=== PATIENT | male | born 1970 | race Caucasian/White ===

== ENCOUNTER 2019-10-08 11:18 | Inpatient (IN) ==
[2019-10-08] MEDS ORDERED: *HR* FentaNYL (PF) 100 MCG/2 ML VIAL IVP ONE ×2 (11:57→15:09)
[2019-10-08 13:14] LABS: Basophils % 0.1 %; Hematocrit 28.4 % (37.5-50.1); Hemoglobin 9.4 g/dL (12.9-16.9); Immature Granulocytes % 3.6 % (0-4); Lymphocytes # 0.3 K/mcL (0.6-4.6); Lymphocytes % 3.9 %; Mean Corpuscular HGB Conc 33.1 g/dL (31.6-35.5); Mean Corpuscular Hemoglobin 40.2 pg (28.0-33.3); Mean Corpuscular Volume 121.4 fL (83.0-100.0); Mean Platelet Volume 9.4 fL (9.4-12.4); Monocytes # 0.9 K/mcL (0.0-1.3); Platelet Count 189 K/mcL (140-400); Prothrombin Time 11.8 Seconds (9.4-12.1); Red Blood Count 2.34 M/mcL (4.19-5.50); Red Cell Distribution Width 17.4 % (11.5-14.5); Segmented Neutrophils % 80.4 %; White Blood Count 7.4 K/mcL (4.3-11.1)
[2019-10-08 13:31] LABS: BUN/Creatinine Ratio 26 (6-26); Blood Urea Nitrogen 17 mg/dL (6-20); Calcium 9.6 mg/dL (8.6-10.3); Carbon Dioxide 28 mEq/L (23-29); Chloride 101 mEq/L (98-107); Glucose 117 mg/dL (70-105); Osmolality,Calculated 285 (280-300); Potassium 4.3 mEq/L (3.5-5.1); Sodium 136 mEq/L (136-145); eGFR For African Americans > 60 (> 60); eGFR For Non-African Americans > 60 (> 60)
[2019-10-08 13:42] LABS: Anisocytosis 1+ (Not Present); Macrocytosis Present (Not Present); Platelet Estimate Normal (Normal)
[2019-10-08] MEDS ORDERED: Ondansetron ODT 4 MG TAB.RAPDIS PO PRN (16:07)
[2019-10-08] MEDS ORDERED: NON-FORMULARY MEDICATION 1 EACH EACH (Oxycodone Immed Rel 10 MG) PO PRN (16:07)
[2019-10-08] MEDS ORDERED: Naloxone 0.4 MG/ML INJ IVP PRN (16:12)
[2019-10-08] MEDS ORDERED: BUPRENORPHINE 20 MCG TP SCH (16:15)
[2019-10-08] MEDS ORDERED: *HR* HYDROmorphone (PF) 1 MG/ML SYRINGE IVP PRN (16:16)
[2019-10-08] MEDS ORDERED: OLANZapine 10 MG TAB.RAPDIS PO SCH (21:00)
[2019-10-08] MEDS: Gabapentin 400 MG CAPSULE PO SCH (22:21)
[2019-10-08] MEDS: Albuterol 2.5 MG/3 ML NEBULIZER IH SCH (23:04)
[2019-10-08] MEDS: Zinc Sulfate 220 MG CAPSULE PO SCH (23:44)
[2019-10-09] MEDS: Albuterol 2.5 MG/3 ML NEBULIZER IH SCH ×4 (03:41→22:05)
[2019-10-09 05:26] LABS: Eosinophils # 0.1 K/mcL (0.0-0.6); Eosinophils % 2.2 %; Hematocrit 27.2 % (37.5-50.1); Immature Granulocytes % 1.5 % (0-4); Lymphocytes # 0.6 K/mcL (0.6-4.6); Lymphocytes % 10.6 %; Mean Corpuscular HGB Conc 33.1 g/dL (31.6-35.5); Mean Corpuscular Hemoglobin 40.5 pg (28.0-33.3); Mean Corpuscular Volume 122.5 fL (83.0-100.0); Mean Platelet Volume 9.4 fL (9.4-12.4); Monocytes # 0.8 K/mcL (0.0-1.3); Monocytes % 14.5 %; Neutrophils # 3.8 K/mcL (1.6-8.9); Platelet Count 163 K/mcL (140-400); Red Blood Count 2.22 M/mcL (4.19-5.50); Red Cell Distribution Width 17.6 % (11.5-14.5); Segmented Neutrophils % 71.2 %; White Blood Count 5.4 K/mcL (4.3-11.1)
[2019-10-09 05:48] LABS: BUN/Creatinine Ratio 22 (6-26); Blood Urea Nitrogen 12 mg/dL (6-20); Calcium 8.9 mg/dL (8.6-10.3); Carbon Dioxide 26 mEq/L (23-29); Chloride 103 mEq/L (98-107); Glucose 105 mg/dL (70-105); Osmolality,Calculated 284 (280-300); Potassium 3.7 mEq/L (3.5-5.1); Sodium 137 mEq/L (136-145); eGFR For African Americans > 60 (> 60); eGFR For Non-African Americans > 60 (> 60)
[2019-10-09] MEDS ORDERED: *HR* Enoxaparin 40 MG/0.4 ML SYRINGE SQ SCH (06:00)
[2019-10-09 06:24] LABS: Anisocytosis 1+ (Not Present); Microcytosis Present (Not Present)
[2019-10-09 06:25] LABS: Platelet Estimate Normal (Normal)
[2019-10-09] MEDS: Gabapentin 400 MG CAPSULE PO SCH ×3 (07:30→21:53)
[2019-10-09] MEDS: Zinc Sulfate 220 MG CAPSULE PO SCH ×2 (07:30→21:52)
[2019-10-09] MEDS ORDERED: Lidocaine HCL 4 ML Topical Solution (Laryng-O-Jet Kit Sterile Pak) TP ONE (08:32)
[2019-10-09] MEDS ORDERED: *HR* FentaNYL (PF) 100 MCG/2 ML VIAL ONE (08:32)
[2019-10-09] MEDS ORDERED: Lidocaine -MPF 2% 2 ML VIAL ONE (08:32)
[2019-10-09] MEDS ORDERED: *HR* Propofol 200 MG/20 ML VIAL IVP ONE (08:32)
[2019-10-09] MEDS ORDERED: Ondansetron 4 MG/2 ML VIAL ONE (08:32)
[2019-10-09] MEDS ORDERED: Dexamethasone 4 MG/ML VIAL ONE (08:32)
[2019-10-09] MEDS ORDERED: *HR* HYDROmorphone PF 0.5 MG/0.5 ML SYRINGE IVP PRN ×3 (08:38→13:05)
[2019-10-09] MEDS ORDERED: *HR* OxyCODONE Immed Rel 5 MG TABLET PO PRN (08:38)
[2019-10-09] MEDS ORDERED: Ondansetron 4 MG/2 ML VIAL IVP ONE ×2 (08:38→13:05)
[2019-10-09] MEDS ORDERED: *HR* Promethazine 25 MG/ML VIAL IVP PRN ×2 (08:38→13:05)
[2019-10-09] MEDS ORDERED: Ringers Solution, Lactated 1,000 ML IVC SCH ×2 (08:45→13:05)
[2019-10-09] MEDS ORDERED: Sulfamethoxazole/Trimeth DS 1 EACH TABLET PO SCH (09:00)
[2019-10-09] MEDS ORDERED: levoFLOXacin 500 MG TABLET PO SCH (09:00)
[2019-10-09] MEDS ORDERED: Fluconazole 100 MG TABLET PO SCH (09:00)
[2019-10-09] MEDS ORDERED: Dasatinib [Sprycel] 100 MG PO SCH (09:00)
[2019-10-09] MEDS ORDERED: ceFAZolin 2,000 MG in 0.9 % Sodium Chloride 100 ML IVPB ONE (09:00)
[2019-10-09] MEDS ORDERED: *HR* Succinylcholine 200 MG/10 ML VIAL IVP ONE (09:22)
[2019-10-09] MEDS ORDERED: Tiotropium 18 MCG inhalation IH SCH (10:00)
[2019-10-09] MEDS ORDERED: *HR* HYDROMORPHONE 2 MG/ML VIAL ONE (10:04)
[2019-10-09] MEDS ORDERED: Acetaminophen IV 1,000 MG/100 ML INFUS..BTL IVPB ONE (10:16)
[2019-10-09] MEDS ORDERED: DASATINIB 100 MG PO SCH (11:00)
[2019-10-09 11:28] LABS: Hematocrit 28.2 % (37.5-50.1); Hemoglobin 9.2 g/dL (12.9-16.9)
[2019-10-09] MEDS ORDERED: BUPRENORPHINE 20 MCG TP SCH (13:05)
[2019-10-09] MEDS ORDERED: Naloxone 0.4 MG/ML INJ IVP PRN (13:05)
[2019-10-09] MEDS ORDERED: Ondansetron ODT 4 MG TAB.RAPDIS PO PRN (13:05)
[2019-10-09] MEDS ORDERED: *HR* Labetalol 20 MG/4 ML SYRINGE IVP ONE (13:39)
[2019-10-09] MEDS: Ringers Solution, Lactated 1,000 ML IVC SCH (14:51)
[2019-10-09] MEDS: ceFAZolin 2,000 MG in 0.9 % Sodium Chloride 100 ML IVPB SCH (17:21)
[2019-10-09] MEDS: OLANZapine 10 MG TAB.RAPDIS PO SCH (21:52)
[2019-10-09] MEDS: Sulfamethoxazole/Trimeth DS 1 EACH TABLET PO SCH (21:53)
[2019-10-09] MEDS: *HR* HYDROmorphone PF 0.5 MG/0.5 ML SYRINGE IVP PRN (22:45)
[2019-10-10] MEDS: ceFAZolin 2,000 MG in 0.9 % Sodium Chloride 100 ML IVPB SCH ×2 (01:03→09:14)
[2019-10-10] MEDS: Ringers Solution, Lactated 1,000 ML IVC SCH (03:42)
[2019-10-10] MEDS: Albuterol 2.5 MG/3 ML NEBULIZER IH SCH ×4 (03:51→22:01)
[2019-10-10 05:22] LABS: Hemoglobin 8.6 g/dL (12.9-16.9); Mean Corpuscular HGB Conc 33.1 g/dL (31.6-35.5); Mean Corpuscular Hemoglobin 39.6 pg (28.0-33.3); Mean Corpuscular Volume 119.8 fL (83.0-100.0); Mean Platelet Volume 9.5 fL (9.4-12.4); Platelet Count 184 K/mcL (140-400); Red Blood Count 2.17 M/mcL (4.19-5.50); Red Cell Distribution Width 17.1 % (11.5-14.5); White Blood Count 6.7 K/mcL (4.3-11.1)
[2019-10-10 05:37] LABS: BUN/Creatinine Ratio 24 (6-26); Blood Urea Nitrogen 14 mg/dL (6-20); Calcium 8.7 mg/dL (8.6-10.3); Carbon Dioxide 27 mEq/L (23-29); Chloride 98 mEq/L (98-107); Glucose 127 mg/dL (70-105); Osmolality,Calculated 278 (280-300); Potassium 4.2 mEq/L (3.5-5.1); Sodium 133 mEq/L (136-145); eGFR For African Americans > 60 (> 60); eGFR For Non-African Americans > 60 (> 60)
[2019-10-10] MEDS: *HR* Enoxaparin 40 MG/0.4 ML SYRINGE SQ SCH (06:07)
[2019-10-10] MEDS: *HR* HYDROmorphone PF 0.5 MG/0.5 ML SYRINGE IVP PRN ×2 (06:22→12:04)
[2019-10-10] MEDS: Gabapentin 400 MG CAPSULE PO SCH ×3 (09:13→19:46)
[2019-10-10] MEDS: levoFLOXacin 500 MG TABLET PO SCH (09:13)
[2019-10-10] MEDS: Zinc Sulfate 220 MG CAPSULE PO SCH ×2 (09:14→19:46)
[2019-10-10] MEDS: Fluconazole 100 MG TABLET PO SCH (09:14)
[2019-10-10] MEDS: DASATINIB 100 MG PO SCH (09:21)
[2019-10-10] MEDS: Tiotropium 18 MCG inhalation IH SCH (09:34)
[2019-10-10] MEDS ORDERED: Ketorolac 15 MG/ML VIAL IVP ONE (12:26)
[2019-10-10] MEDS: OLANZapine 10 MG TAB.RAPDIS PO SCH (19:46)
[2019-10-11] MEDS: Albuterol 2.5 MG/3 ML NEBULIZER IH SCH ×4 (03:50→22:50)
[2019-10-11] MEDS: *HR* Enoxaparin 40 MG/0.4 ML SYRINGE SQ SCH (05:23)
[2019-10-11 05:50] LABS: Basophils % 0.2 %; Eosinophils # 0.2 K/mcL (0.0-0.6); Eosinophils % 3.2 %; Immature Granulocytes % 1.9 % (0-4); Lymphocytes # 0.4 K/mcL (0.6-4.6); Lymphocytes % 8.7 %; Mean Corpuscular HGB Conc 33.3 g/dL (31.6-35.5); Mean Corpuscular Hemoglobin 40.5 pg (28.0-33.3); Mean Corpuscular Volume 121.4 fL (83.0-100.0); Mean Platelet Volume 9.3 fL (9.4-12.4); Monocytes # 0.7 K/mcL (0.0-1.3); Monocytes % 14.8 %; Neutrophils # 3.4 K/mcL (1.6-8.9); Platelet Count 158 K/mcL (140-400); Red Blood Count 1.73 M/mcL (4.19-5.50); Red Cell Distribution Width 16.9 % (11.5-14.5); Segmented Neutrophils % 71.2 %; White Blood Count 4.7 K/mcL (4.3-11.1)
[2019-10-11 06:12] LABS: BUN/Creatinine Ratio 33 (6-26); Blood Urea Nitrogen 20 mg/dL (6-20); Calcium 8.8 mg/dL (8.6-10.3); Carbon Dioxide 27 mEq/L (23-29); Chloride 99 mEq/L (98-107); Glucose 132 mg/dL (70-105); Osmolality,Calculated 280 (280-300); Sodium 133 mEq/L (136-145); eGFR For African Americans > 60 (> 60); eGFR For Non-African Americans > 60 (> 60)
[2019-10-11 06:15] LABS: Anisocytosis 1+ (Not Present); Hypochromasia Present (Not Present); Platelet Estimate Normal (Normal)
[2019-10-11] MEDS: Fluconazole 100 MG TABLET PO SCH (09:01)
[2019-10-11] MEDS: Zinc Sulfate 220 MG CAPSULE PO SCH ×2 (09:01→20:24)
[2019-10-11] MEDS: levoFLOXacin 500 MG TABLET PO SCH (09:02)
[2019-10-11] MEDS: Gabapentin 400 MG CAPSULE PO SCH ×3 (09:02→20:24)
[2019-10-11] MEDS: Tiotropium 18 MCG inhalation IH SCH (10:40)
[2019-10-11] MEDS ORDERED: 0.9 % Sodium Chloride 250 ML ONE ×2 (10:56→16:25)
[2019-10-11] MEDS: DASATINIB 100 MG PO SCH (11:17)
[2019-10-11] MEDS: *HR* HYDROmorphone PF 0.5 MG/0.5 ML SYRINGE IVP PRN (12:25)
[2019-10-11 19:47] LABS: Bilirubin,Urine Negative (Negative); Blood,Urine Negative (Negative); Clarity,Urine Clear (Clear); Color,Urine Light-Yellow (Yellow); Glucose,Urine (UA) Normal (Normal); Ketones,Urine Negative (Negative); Leukocyte Esterase,Urine Negative (Negative); Nitrite,Urine Negative (Negative); Protein,Urine Negative (Neg-Trace); Specific Gravity,Urine 1.016 (1.010-1.025); Urobilinogen,Urine Normal (Normal)
[2019-10-11] MEDS: OLANZapine 10 MG TAB.RAPDIS PO SCH (20:24)
[2019-10-12] MEDS: *HR* HYDROmorphone PF 0.5 MG/0.5 ML SYRINGE IVP PRN (02:31)
[2019-10-12] MEDS: Albuterol 2.5 MG/3 ML NEBULIZER IH SCH ×2 (03:49→10:49)
[2019-10-12] MEDS: *HR* Enoxaparin 40 MG/0.4 ML SYRINGE SQ SCH (05:12)
[2019-10-12 05:13] LABS: BUN/Creatinine Ratio 26 (6-26); Blood Urea Nitrogen 15 mg/dL (6-20); Calcium 8.4 mg/dL (8.6-10.3); Carbon Dioxide 28 mEq/L (23-29); Chloride 100 mEq/L (98-107); Glucose 129 mg/dL (70-105); Osmolality,Calculated 281 (280-300); Potassium 4.2 mEq/L (3.5-5.1); Sodium 134 mEq/L (136-145); eGFR For African Americans > 60 (> 60); eGFR For Non-African Americans > 60 (> 60)
[2019-10-12 06:34] LABS: Hematocrit 23.6 % (37.5-50.1); Hemoglobin 7.9 g/dL (12.9-16.9); Mean Corpuscular HGB Conc 33.5 g/dL (31.6-35.5); Mean Corpuscular Hemoglobin 38.2 pg (28.0-33.3); Mean Platelet Volume 9.4 fL (9.4-12.4); Platelet Count 159 K/mcL (140-400); Red Blood Count 2.07 M/mcL (4.19-5.50); Red Cell Distribution Width 22.4 % (11.5-14.5); White Blood Count 4.3 K/mcL (4.3-11.1)
[2019-10-12 07:13] LABS: Lymphocytes # 0.8 K/mcL (0.6-4.6); Monocytes # 0.3 K/mcL (0.0-1.3); Neutrophils # 3.1 K/mcL (1.6-8.9)
[2019-10-12 07:14] LABS: Anisocytosis 1+ (Not Present); Platelet Estimate Normal (Normal)
[2019-10-12] MEDS: Zinc Sulfate 220 MG CAPSULE PO SCH (08:05)
[2019-10-12] MEDS: Fluconazole 100 MG TABLET PO SCH (08:05)
[2019-10-12] MEDS: levoFLOXacin 500 MG TABLET PO SCH (08:05)
[2019-10-12] MEDS: Gabapentin 400 MG CAPSULE PO SCH (08:05)
[2019-10-12] MEDS: DASATINIB 100 MG PO SCH (08:06)
[2019-10-12] MEDS: Sulfamethoxazole/Trimeth DS 1 EACH TABLET PO SCH (08:08)
[2019-10-12 10:21] VITALS: BP 125/75
[2019-10-12] MEDS: Tiotropium 18 MCG inhalation IH SCH (10:49)
== END 2019-10-12 12:15 | disposition home health service (06) | DRG 308 ==
LOC: EMEROOARM 11:18 → 3NENU 11:18 → SUATTDRO 10-10 08:27
PROVIDERS: ADMIT Student in an Organized Health Care Education/Training Program; ATTEND Internal Medicine

== ENCOUNTER 2020-03-29 16:15 | Inpatient (IN) ==
[2020-03-29] MEDS: *HR* FentaNYL (PF) 100 MCG/2 ML VIAL IVP PRN ×3 (16:32→19:26)
[2020-03-29 17:04] LABS: Basophils % 0.6 %; Eosinophils # 0.1 K/mcL (0.0-0.6); Eosinophils % 1.9 %; Hematocrit 24.4 % (37.5-50.1); Hemoglobin 7.7 g/dL (12.9-16.9); Immature Granulocytes % 0.9 % (0-4); Lymphocytes # 0.6 K/mcL (0.6-4.6); Lymphocytes % 11.8 %; Mean Corpuscular HGB Conc 31.6 g/dL (31.6-35.5); Mean Corpuscular Hemoglobin 37.6 pg (28.0-33.3); Mean Platelet Volume 9.2 fL (9.4-12.4); Monocytes # 0.2 K/mcL (0.0-1.3); Monocytes % 4.7 %; Platelet Count 185 K/mcL (140-400); Red Blood Count 2.05 M/mcL (4.19-5.50); Red Cell Distribution Width 22.1 % (11.5-14.5); Segmented Neutrophils % 80.1 %; White Blood Count 4.7 K/mcL (4.3-11.1)
[2020-03-29 17:09] LABS: Neutrophils # 3.8 K/mcL (1.6-8.9)
[2020-03-29 17:24] LABS: BUN/Creatinine Ratio 20 (6-26); Blood Urea Nitrogen 11 mg/dL (6-20); Calcium 8.4 mg/dL (8.6-10.3); Carbon Dioxide 24 mEq/L (23-29); Chloride 106 mEq/L (98-107); Glucose 142 mg/dL (70-105); Osmolality,Calculated 288 (280-300); Potassium 4.3 mEq/L (3.5-5.1); Sodium 138 mEq/L (136-145); eGFR For African Americans > 60 (> 60); eGFR For Non-African Americans > 60 (> 60)
[2020-03-29 17:40] LABS: Macrocytosis Present (Not Present)
[2020-03-29] MEDS ORDERED: cefTRIAXone 1,000 MG in Water for inj. (sterile) 10 ML IVP ONE (17:59)
[2020-03-29] MEDS ORDERED: Azithromycin 500 MG in 0.9 % Sodium Chloride 250 ML IVPB ONE (17:59)
[2020-03-29 18:18] LABS: Troponin I < 0.03 ng/mL (< 0.04)
[2020-03-29] MEDS ORDERED: Naloxone 0.4 MG/ML INJ IVP PRN (19:17)
[2020-03-29] MEDS ORDERED: Acetaminophen 325 MG TABLET PO PRN (19:17)
[2020-03-29] MEDS ORDERED: *HR* OxyCODONE Immed Rel 5 MG TABLET PO PRN (19:17)
[2020-03-29] MEDS ORDERED: Ondansetron 4 MG/2 ML VIAL IVP PRN (19:17)
[2020-03-29] MEDS ORDERED: *HR* HYDROcodone/Acet 5/325 mg TABLET PO PRN (19:17)
[2020-03-29] MEDS ORDERED: *HR* Heparin 5,000 UNIT/ML VIAL SQ SCH (19:45)
[2020-03-29] MEDS ORDERED: Gabapentin 400 MG CAPSULE PO SCH (21:00)
[2020-03-29] MEDS ORDERED: OLANZapine 10 MG TAB.RAPDIS PO SCH (21:00)
[2020-03-30 01:04] LABS: Hematocrit 19.2 % (37.5-50.1); Hemoglobin 6.2 g/dL (12.9-16.9); Mean Corpuscular HGB Conc 32.3 g/dL (31.6-35.5); Mean Corpuscular Volume 117.8 fL (83.0-100.0); Platelet Count 183 K/mcL (140-400); Red Blood Count 1.63 M/mcL (4.19-5.50); Red Cell Distribution Width 21.9 % (11.5-14.5)
[2020-03-30 01:08] LABS: White Blood Count 10.9 K/mcL (4.3-11.1)
[2020-03-30 01:25] LABS: BUN/Creatinine Ratio 29 (6-26); Blood Urea Nitrogen 14 mg/dL (6-20); Calcium 8.3 mg/dL (8.6-10.3); Carbon Dioxide 23 mEq/L (23-29); Chloride 105 mEq/L (98-107); Glucose 134 mg/dL (70-105); Osmolality,Calculated 286 (280-300); Potassium 4.3 mEq/L (3.5-5.1); Sodium 137 mEq/L (136-145); eGFR For African Americans > 60 (> 60); eGFR For Non-African Americans > 60 (> 60)
[2020-03-30] MEDS ORDERED: 0.9 % Sodium Chloride 250 ML IVC SCH ×2 (02:30→03:45)
[2020-03-30] MEDS ORDERED: Famotidine 20 MG/2 ML VIAL IVP ONE ×2 (06:45→11:36)
[2020-03-30] MEDS ORDERED: Acetaminophen IV 1,000 MG/100 ML BAG IVPB ONE (06:45)
[2020-03-30] MEDS ORDERED: *HR* Propofol 200 MG/20 ML VIAL IVP ONE (06:49)
[2020-03-30] MEDS ORDERED: *HR* FentaNYL (PF) 100 MCG/2 ML VIAL ONE (06:49)
[2020-03-30] MEDS ORDERED: Dexamethasone 4 MG/ML VIAL ONE (06:50)
[2020-03-30] MEDS ORDERED: *HR* Succinylcholine 200 MG/10 ML VIAL IVP ONE (06:50)
[2020-03-30] MEDS ORDERED: Ondansetron 4 MG/2 ML VIAL ONE (06:50)
[2020-03-30] MEDS ORDERED: Lidocaine -MPF 2% 2 ML VIAL ONE (06:50)
[2020-03-30] MEDS ORDERED: Albumin Human 5% 0 GM/0 ML IV.SOLN ONE (07:09)
[2020-03-30] MEDS ORDERED: *HR* Vasopressin 20 UNIT/ML VIAL ONE (07:10)
[2020-03-30] MEDS ORDERED: Ondansetron 4 MG/2 ML VIAL IVP PRN (07:55)
[2020-03-30] MEDS ORDERED: *HR* OxyCODONE Immed Rel 5 MG TABLET PO PRN (07:55)
[2020-03-30] MEDS ORDERED: *HR* HYDROmorphone PF 0.5 MG/0.5 ML SYRINGE IVP PRN (07:55)
[2020-03-30] MEDS ORDERED: *HR* HYDROMORPHONE 2 MG/ML VIAL ONE (07:58)
[2020-03-30] MEDS ORDERED: Ringers Solution, Lactated 1,000 ML IVC SCH (08:00)
[2020-03-30] MEDS ORDERED: Ethanol\\Acetic Acid\\Na Ace\\Ben 1,000 ML IRRIG.SOLN IR ONE (08:16)
[2020-03-30] MEDS ORDERED: Fluconazole 100 MG TABLET PO SCH (09:00)
[2020-03-30] MEDS ORDERED: cefTRIAXone 1,000 MG in Water for inj. (sterile) 10 ML IVP SCH (09:00)
[2020-03-30 09:46] LABS: Hematocrit 27.7 % (37.5-50.1)
[2020-03-30] MEDS ORDERED: Sennosides 8.6 MG TABLET PO PRN (11:36)
[2020-03-30] MEDS ORDERED: Acetaminophen 325 MG TABLET PO PRN (11:36)
[2020-03-30] MEDS ORDERED: Naloxone 0.4 MG/ML INJ IVP PRN ×2 (11:36)
[2020-03-30] MEDS ORDERED: Ringers Solution, Lactated 1,000 ML ONE (13:41)
[2020-03-30] MEDS: Gabapentin 400 MG CAPSULE PO SCH ×2 (15:13→23:00)
[2020-03-30] MEDS: *HR* OxyCODONE Immed Rel 5 MG TABLET PO PRN ×2 (15:16→23:49)
[2020-03-30] MEDS: Cholecalciferol (D-3) 1,000 UNIT (25MCG) TABLET PO SCH (15:17)
[2020-03-30] MEDS ORDERED: Ondansetron ODT 4 MG TAB.RAPDIS PO PRN (16:04)
[2020-03-30] MEDS: Doxycycline 100 MG in 0.9 % Sodium Chloride Mini Bag 100 ML IVPB SCH (17:16)
[2020-03-30] MEDS: *HR* HYDROcodone/Acet 5/325 mg TABLET PO PRN (17:20)
[2020-03-30] MEDS ORDERED: Azithromycin 500 MG in 0.9 % Sodium Chloride 250 ML IVPB SCH (18:00)
[2020-03-30] MEDS: OLANZapine 10 MG TAB.RAPDIS PO SCH (23:00)
[2020-03-31 01:22] LABS: % Iron Saturation 56 % (20-55); BUN/Creatinine Ratio 31 (6-26); Blood Urea Nitrogen 16 mg/dL (6-20); Calcium 7.8 mg/dL (8.6-10.3); Carbon Dioxide 27 mEq/L (23-29); Chloride 103 mEq/L (98-107); Glucose 144 mg/dL (70-105); Iron 80 mcg/dL (65-175); Magnesium 1.5 mg/dL (1.6-2.6); Osmolality,Calculated 284 (280-300); Phosphorous 2.8 mg/dL (2.7-4.5); Potassium 4.5 mEq/L (3.5-5.1); Sodium 135 mEq/L (136-145); Transferrin 102 mg/dL (203-362); eGFR For African Americans > 60 (> 60); eGFR For Non-African Americans > 60 (> 60)
[2020-03-31 04:16] LABS: Basophils % 0.2 %; Eosinophils % 0.5 %; Hematocrit 20.8 % (37.5-50.1); Hemoglobin 6.8 g/dL (12.9-16.9); Immature Granulocytes % 0.7 % (0-4); Lymphocytes # 0.3 K/mcL (0.6-4.6); Lymphocytes % 4.6 %; Mean Corpuscular HGB Conc 32.7 g/dL (31.6-35.5); Mean Corpuscular Hemoglobin 32.4 pg (28.0-33.3); Mean Platelet Volume 10.5 fL (9.4-12.4); Monocytes # 0.3 K/mcL (0.0-1.3); Monocytes % 4.1 %; Neutrophils # 5.4 K/mcL (1.6-8.9); Nucleated Red Blood Cells 0.3 /100 WBC (0); Platelet Count 102 K/mcL (140-400); Red Cell Distribution Width 22.4 % (11.5-14.5); Segmented Neutrophils % 89.9 %
[2020-03-31] MEDS ORDERED: 0.9 % Sodium Chloride 250 ML IVC SCH (06:15)
[2020-03-31] MEDS ORDERED: 0.9 % Sodium Chloride 250 ML ONE (07:01)
[2020-03-31] MEDS: Doxycycline 100 MG in 0.9 % Sodium Chloride Mini Bag 100 ML IVPB SCH (07:08)
[2020-03-31] MEDS: *HR* OxyCODONE Immed Rel 5 MG TABLET PO PRN ×2 (07:38→14:12)
[2020-03-31] MEDS ORDERED: Isovue-370 500 ML BOTTLE IVP ONE (07:38)
[2020-03-31] MEDS: levoFLOXacin 500 MG TABLET PO SCH (08:42)
[2020-03-31] MEDS: Gabapentin 400 MG CAPSULE PO SCH ×3 (08:42→20:27)
[2020-03-31] MEDS: Aspirin Enteric Coated 81 MG Tablet PO SCH (08:43)
[2020-03-31] MEDS: Cholecalciferol (D-3) 1,000 UNIT (25MCG) TABLET PO SCH (08:43)
[2020-03-31] MEDS: Fluconazole 100 MG TABLET PO SCH (08:43)
[2020-03-31] MEDS ORDERED: cefTRIAXone 1,000 MG in Water for inj. (sterile) 10 ML IVP SCH (09:00)
[2020-03-31] MEDS: Tiotropium 10 INH DOSE IH SCH (10:51)
[2020-03-31 14:12] LABS: Albumin 3.1 g/dL (3.5-5.7); Albumin/Globulin Ratio 1.6 (1.1-2.2); Bilirubin,Indirect 0.5 mg/dL (0.0-1.0); Bilirubin,Total 0.5 mg/dL (0.3-1.0); Hematocrit 23.2 % (37.5-50.1); Hemoglobin 7.8 g/dL (12.9-16.9); Total Protein 5.1 g/dL (6.4-8.9)
[2020-03-31 16:27] LABS: Hematocrit 22.2 % (37.5-50.1); Hemoglobin 7.4 g/dL (12.9-16.9)
[2020-03-31] MEDS ORDERED: *HR* OxyCODONE Immed Rel 5 MG TABLET PO PRN (18:08)
[2020-03-31] MEDS ORDERED: BUPRENORPHINE 20 MCG TP SCH (18:15)
[2020-03-31] MEDS: Morphine Sulfate ER (12 HR) 15 MG TABLET.ER PO SCH (20:27)
[2020-03-31] MEDS: OLANZapine 10 MG TAB.RAPDIS PO SCH (20:27)
[2020-03-31 23:27] LABS: Hematocrit 22.4 % (37.5-50.1); Hemoglobin 7.5 g/dL (12.9-16.9)
[2020-04-01 01:28] LABS: Hemoglobin 7.4 g/dL (12.9-16.9); Immature Granulocytes % 0.6 % (0-4)
[2020-04-01 01:30] LABS: Basophils % 0.6 %; Eosinophils # 0.1 K/mcL (0.0-0.6); Eosinophils % 2.7 %; Hematocrit 22.3 % (37.5-50.1); Immature Platelets 4.7 % (1.1-6.1); Lymphocytes # 0.3 K/mcL (0.6-4.6); Lymphocytes % 5.3 %; Mean Corpuscular HGB Conc 33.2 g/dL (31.6-35.5); Mean Corpuscular Volume 96.5 fL (83.0-100.0); Mean Platelet Volume 10.4 fL (9.4-12.4); Monocytes # 0.2 K/mcL (0.0-1.3); Neutrophils # 4.6 K/mcL (1.6-8.9); Red Blood Count 2.31 M/mcL (4.19-5.50); Red Cell Distribution Width 21.3 % (11.5-14.5); Segmented Neutrophils % 86.8 %; White Blood Count 5.3 K/mcL (4.3-11.1)
[2020-04-01 01:31] LABS: Platelet Count 93 K/mcL (140-400)
[2020-04-01 01:46] LABS: BUN/Creatinine Ratio 32 (6-26); Blood Urea Nitrogen 13 mg/dL (6-20); Calcium 8.6 mg/dL (8.6-10.3); Carbon Dioxide 25 mEq/L (23-29); Chloride 103 mEq/L (98-107); Glucose 116 mg/dL (70-105); Magnesium 1.5 mg/dL (1.6-2.6); Osmolality,Calculated 283 (280-300); Phosphorous 2.9 mg/dL (2.7-4.5); Sodium 136 mEq/L (136-145); eGFR For African Americans > 60 (> 60); eGFR For Non-African Americans > 60 (> 60)
[2020-04-01] MEDS: Morphine Sulfate ER (12 HR) 15 MG TABLET.ER PO SCH ×2 (06:36→17:27)
[2020-04-01] MEDS: *HR* OxyCODONE Immed Rel 5 MG TABLET PO PRN (09:57)
[2020-04-01] MEDS: levoFLOXacin 500 MG TABLET PO SCH (10:00)
[2020-04-01] MEDS: Cholecalciferol (D-3) 1,000 UNIT (25MCG) TABLET PO SCH (10:01)
[2020-04-01] MEDS: Gabapentin 400 MG CAPSULE PO SCH ×3 (10:01→20:24)
[2020-04-01] MEDS: Aspirin Enteric Coated 81 MG Tablet PO SCH (10:01)
[2020-04-01] MEDS: Fluconazole 100 MG TABLET PO SCH (10:06)
[2020-04-01] MEDS: Tiotropium 10 INH DOSE IH SCH (10:18)
[2020-04-01] MEDS ORDERED: Magnesium Sulfate 1 GM/102 ML PIGGYBACK IVPB ONE (12:55)
[2020-04-01] MEDS: *HR* HYDROcodone/Acet 5/325 mg TABLET PO PRN (14:52)
[2020-04-01] MEDS ORDERED: polyethylene glycoL 3350 17 GM POWD.PACK PO PRN (15:54)
[2020-04-01] MEDS: OLANZapine 10 MG TAB.RAPDIS PO SCH (20:23)
[2020-04-01] MEDS ORDERED: NON-FORMULARY MEDICATION 1 EACH EACH (Gabapentin [Neurontin] 800 MG) PO SCH (21:00)
[2020-04-02] MEDS: *HR* OxyCODONE Immed Rel 5 MG TABLET PO PRN ×3 (04:49→20:09)
[2020-04-02 05:08] LABS: BUN/Creatinine Ratio 35 (6-26); Blood Urea Nitrogen 12 mg/dL (6-20); Calcium 8.6 mg/dL (8.6-10.3); Carbon Dioxide 26 mEq/L (23-29); Chloride 102 mEq/L (98-107); Glucose 109 mg/dL (70-105); Magnesium 1.6 mg/dL (1.6-2.6); Osmolality,Calculated 280 (280-300); Phosphorous 4.2 mg/dL (2.7-4.5); Potassium 4.1 mEq/L (3.5-5.1); Sodium 135 mEq/L (136-145); eGFR For African Americans > 60 (> 60); eGFR For Non-African Americans > 60 (> 60)
[2020-04-02 05:10] LABS: Basophils % 0.8 %; Eosinophils % 6.4 %; Hemoglobin 6.8 g/dL (12.9-16.9)
[2020-04-02 05:12] LABS: Eosinophils # 0.2 K/mcL (0.0-0.6); Hematocrit 20.9 % (37.5-50.1); Immature Granulocytes % 0.3 % (0-4); Immature Platelets 4.4 % (1.1-6.1); Lymphocytes # 0.2 K/mcL (0.6-4.6); Lymphocytes % 6.1 %; Mean Corpuscular HGB Conc 32.5 g/dL (31.6-35.5); Mean Corpuscular Hemoglobin 32.5 pg (28.0-33.3); Mean Platelet Volume 10.6 fL (9.4-12.4); Monocytes # 0.2 K/mcL (0.0-1.3); Monocytes % 5.1 %; Red Blood Count 2.09 M/mcL (4.19-5.50); Red Cell Distribution Width 20.7 % (11.5-14.5); Segmented Neutrophils % 81.3 %; White Blood Count 3.7 K/mcL (4.3-11.1)
[2020-04-02 05:14] LABS: Platelet Count 94 K/mcL (140-400)
[2020-04-02] MEDS: Morphine Sulfate ER (12 HR) 15 MG TABLET.ER PO SCH ×2 (06:35→17:33)
[2020-04-02] MEDS: Cholecalciferol (D-3) 1,000 UNIT (25MCG) TABLET PO SCH (07:48)
[2020-04-02] MEDS: Fluconazole 100 MG TABLET PO SCH (07:48)
[2020-04-02] MEDS: Gabapentin 400 MG CAPSULE PO SCH ×3 (07:49→20:10)
[2020-04-02] MEDS: Sulfamethoxazole/Trimeth DS 1 EACH TABLET PO SCH ×2 (07:49→20:10)
[2020-04-02] MEDS: levoFLOXacin 500 MG TABLET PO SCH (07:50)
[2020-04-02] MEDS ORDERED: 0.9 % Sodium Chloride 250 ML IVC SCH (08:00)
[2020-04-02] MEDS: Tiotropium 10 INH DOSE IH SCH (08:09)
[2020-04-02] MEDS: *HR* HYDROcodone/Acet 5/325 mg TABLET PO PRN (14:42)
[2020-04-02 17:05] LABS: Hematocrit 24.1 % (37.5-50.1); Hemoglobin 8.1 g/dL (12.9-16.9)
[2020-04-02] MEDS: OLANZapine 10 MG TAB.RAPDIS PO SCH (20:10)
[2020-04-03 00:43] LABS: Mean Corpuscular Volume 97.5 fL (83.0-100.0); Red Cell Distribution Width 19.2 % (11.5-14.5)
[2020-04-03 00:45] LABS: Basophils # 0.1 K/mcL (0.0-0.2); Basophils % 1.3 %; Eosinophils # 0.4 K/mcL (0.0-0.6); Eosinophils % 11.7 %; Hematocrit 23.6 % (37.5-50.1); Immature Granulocytes % 0.5 % (0-4); Immature Platelets 3.8 % (1.1-6.1); Lymphocytes # 0.3 K/mcL (0.6-4.6); Lymphocytes % 7.7 %; Mean Corpuscular HGB Conc 33.9 g/dL (31.6-35.5); Mean Corpuscular Hemoglobin 33.1 pg (28.0-33.3); Mean Platelet Volume 10.9 fL (9.4-12.4); Monocytes # 0.3 K/mcL (0.0-1.3); Monocytes % 8.5 %; Neutrophils # 2.7 K/mcL (1.6-8.9); Red Blood Count 2.42 M/mcL (4.19-5.50); Segmented Neutrophils % 70.3 %; White Blood Count 3.8 K/mcL (4.3-11.1)
[2020-04-03 00:46] LABS: Platelet Count 99 K/mcL (140-400)
[2020-04-03 01:02] LABS: BUN/Creatinine Ratio 32 (6-26); Blood Urea Nitrogen 16 mg/dL (6-20); Calcium 8.8 mg/dL (8.6-10.3); Carbon Dioxide 27 mEq/L (23-29); Chloride 102 mEq/L (98-107); Glucose 116 mg/dL (70-105); Magnesium 1.6 mg/dL (1.6-2.6); Osmolality,Calculated 286 (280-300); Phosphorous 4.3 mg/dL (2.7-4.5); Potassium 4.3 mEq/L (3.5-5.1); Sodium 137 mEq/L (136-145); eGFR For African Americans > 60 (> 60); eGFR For Non-African Americans > 60 (> 60)
[2020-04-03] MEDS: *HR* OxyCODONE Immed Rel 5 MG TABLET PO PRN ×2 (03:01→10:06)
[2020-04-03] MEDS: Morphine Sulfate ER (12 HR) 15 MG TABLET.ER PO SCH (06:04)
[2020-04-03 07:34] VITALS: BP 119/76
[2020-04-03] MEDS: Fluconazole 100 MG TABLET PO SCH (08:20)
[2020-04-03] MEDS: levoFLOXacin 500 MG TABLET PO SCH (08:21)
[2020-04-03] MEDS: Cholecalciferol (D-3) 1,000 UNIT (25MCG) TABLET PO SCH (08:22)
[2020-04-03] MEDS: Gabapentin 400 MG CAPSULE PO SCH (08:27)
[2020-04-03] MEDS ORDERED: Folic Acid 1 MG TABLET PO SCH (09:00)
[2020-04-03] MEDS: Tiotropium 10 INH DOSE IH SCH (10:58)
== END 2020-04-03 11:30 | disposition home health service (06) | DRG 308 ==
LOC: EMEROOARM 16:15 → 3NENU 16:15 → SUATTDRO 18:48 → 3NENU 19:58
PROVIDERS: ADMIT Student in an Organized Health Care Education/Training Program; ATTEND Internal Medicine

== ENCOUNTER 2021-12-10 02:44 | Observation (INO) ==
[2021-12-10] MEDS ORDERED: Piperacillin/Tazobactam 3.375 GM in 0.9 % Sodium Chloride Mini Bag 100 ML IVPB ONE (03:06)
[2021-12-10 03:25] LABS: Basophils # 0.3 K/mcL (0.0-0.2); Eosinophils # 0.4 K/mcL (0.0-0.6); Eosinophils % 2.9 %; Hemoglobin 14.9 g/dL (12.9-16.9); Immature Granulocytes % 1.9 % (0-4); Lymphocytes # 1.1 K/mcL (0.6-4.6); Lymphocytes % 8.4 %; Mean Corpuscular HGB Conc 33.9 g/dL (31.6-35.5); Mean Corpuscular Hemoglobin 31.6 pg (28.0-33.3); Mean Corpuscular Volume 93.4 fL (83.0-100.0); Monocytes # 1.2 K/mcL (0.0-1.3); Monocytes % 9.7 %; Neutrophils # 9.5 K/mcL (1.6-8.9); Platelet Count 169 K/mcL (140-400); Red Blood Count 4.71 M/mcL (4.19-5.50); Red Cell Distribution Width 14.1 % (11.5-14.5); Segmented Neutrophils % 75.1 %; White Blood Count 12.6 K/mcL (4.3-11.1)
[2021-12-10 03:33] LABS: INR 1.1; Prothrombin Time 12.1 Seconds (9.4-12.1)
[2021-12-10 03:35] LABS: Activated Partial Thrombo Time 35.5 Seconds (26.0-36.0)
[2021-12-10] MEDS ORDERED: *HR* Heparin 5,000 UNIT/ML VIAL IVP PRN ×2 (03:36)
[2021-12-10] MEDS ORDERED: *HR* Heparin 5,000 UNIT/ML VIAL IVP ONE (03:36)
[2021-12-10] MEDS ORDERED: Heparin 25,000UNIT/250ML 1/2NS 25,000 UNIT/250 ML IV.SOLN IVC SCH (03:45)
[2021-12-10 03:47] LABS: Alanine Aminotransferase 12 Units/L (7-52); Albumin 4.2 g/dL (3.5-5.7); Alkaline Phosphatase 94 Units/L (34-104); Aspartate Amino Transferase 14 Units/L (13-39); BUN/Creatinine Ratio 14 (6-26); Bilirubin,Direct 0.1 mg/dL (0.0-0.2); Bilirubin,Indirect 0.3 mg/dL (0.0-1.0); Bilirubin,Total 0.4 mg/dL (0.3-1.0); Blood Urea Nitrogen 12 mg/dL (6-20); Calcium 8.7 mg/dL (8.6-10.3); Carbon Dioxide 25 mEq/L (23-29); Chloride 106 mEq/L (98-107); Globulin 2.1 g/dL (2.4-3.5); Glucose 128 mg/dL (70-105); Lipase 29 Units/L (11-82); Osmolality,Calculated 289 (280-300); Potassium 3.7 mEq/L (3.5-5.1); Sodium 139 mEq/L (136-145); Total Protein 6.3 g/dL (6.4-8.9)
[2021-12-10] MEDS ORDERED: Naloxone 0.4 MG/ML INJ IVP PRN (03:47)
[2021-12-10] MEDS ORDERED: Ondansetron 4 MG/2 ML VIAL IVP PRN ×2 (03:47→08:06)
[2021-12-10] MEDS ORDERED: Melatonin 3 MG TABLET PO PRN (03:47)
[2021-12-10 03:49] LABS: Troponin I < 0.03 ng/mL (< 0.04)
[2021-12-10] MEDS ORDERED: D5% in Water 1,000 ML IVC PRN (04:24)
[2021-12-10] MEDS ORDERED: Dextrose Gel 15 GM/37.5 ML TUBE PO PRN ×2 (04:24)
[2021-12-10] MEDS ORDERED: *HR* Dextrose 50 % in Water (Syg) 50 ML SYRINGE IVP PRN (04:24)
[2021-12-10 05:30] LABS: Hematocrit 43.9 % (37.5-50.1); Hemoglobin 14.8 g/dL (12.9-16.9); Mean Corpuscular HGB Conc 33.7 g/dL (31.6-35.5); Mean Corpuscular Hemoglobin 31.2 pg (28.0-33.3); Mean Corpuscular Volume 92.4 fL (83.0-100.0); Mean Platelet Volume 11.1 fL (9.4-12.4); Platelet Count 181 K/mcL (140-400); Red Blood Count 4.75 M/mcL (4.19-5.50); Red Cell Distribution Width 14.2 % (11.5-14.5); White Blood Count 16.1 K/mcL (4.3-11.1)
[2021-12-10 05:35] LABS: Estimated Average Glucose 111 mg/dl; Hemoglobin A1C 5.5 %
[2021-12-10 05:39] LABS: Heparin anti-factor XA UFH < 0.04 IU/mL (0.30-0.70); INR 1.1
[2021-12-10 05:49] LABS: Magnesium 1.7 mg/dL (1.6-2.6)
[2021-12-10] MEDS: Insulin LISPRO 300 UNITS/3 ML VIAL SUBQ SCH ×2 (06:14→11:38)
[2021-12-10] MEDS ORDERED: Piperacillin/Tazobactam 3.375 GM in 0.9 % Sodium Chloride Mini Bag 100 ML IVPB SCH (08:00)
[2021-12-10] MEDS: *HR* HYDROmorphone (PF) 1 MG/ML SYRINGE IVP PRN ×2 (08:11→14:20)
[2021-12-10 10:53] VITALS: BP 102/58; PULSE 64; TEMP 97.8; O2SAT 93
[2021-12-10 12:16] LABS: Bilirubin,Urine Negative (Negative); Blood,Urine Small (Negative); Clarity,Urine Clear (Clear); Color,Urine Light-Yellow (Yellow); Glucose,Urine (UA) Normal (Normal); Ketones,Urine Trace mg/dL (Negative); Leukocyte Esterase,Urine Negative (Negative); Mucus,Urine Few per lpf (None-Few); Nitrite,Urine Negative (Negative); Protein,Urine Trace mg/dL (Neg-Trace); Urobilinogen,Urine Normal (Normal); WBC,Urine 0-3 per hpf (0-3)
[2021-12-10 12:25] LABS: Amphetamine Screen,Urine Negative ng/mL (Cutoff=1000); Barbiturate Screen,Urine Negative ng/mL (Cutoff=200); Benzodiazepines Screen,Urine Negative ng/mL (Cutoff=200); Cannabinoid Screen,Urine Positive ng/mL (Cutoff = 50); Cocaine Screen,Urine Negative ng/mL (Cutoff= 300); Opiate Screen,Urine Positive ng/mL (Cutoff=300); Phencyclidine Screen,Urine Negative ng/mL (Cutoff=25)
[2021-12-10] MEDS ORDERED: Famotidine 20 MG/2 ML VIAL IVP ONE (14:00)
== END 2021-12-10 14:56 | disposition left against medical advice (07) ==
LOC: 3BNU 02:44 → EMEROOARM 02:44 → SUATTDRO 03:52 → 3BNU 04:23
PROVIDERS: ADMIT Internal Medicine; ATTEND Nurse Practitioner